=== PATIENT | female | born 1970 | race Caucasian/White ===

== ENCOUNTER 2023-10-04 19:04 | Emergency (ER) | payer OTHER, SELFPAY ==
--- NOTE | ~2023-10-04 | CT_ITS ---
EXAMINATION: CT abdomen pelvis w con DATE: 10/04/2023 20:47 INDICATION: Generalized abdominal pain. TECHNIQUE: Computed tomography (CT) of the abdomen and pelvis was performed with 100 mL Omnipaque 350 intravenous contrast. Automated exposure control and iterative reconstruction technique were employe d. The dose-length product was 714.03 mGy-cm. COMPARISON: None. FINDINGS: The visualized portions of the lung bases are clear without pneumonia or pleural effusion. The heart size is normal. No pericardial effusion. The liver and spleen are normal. There are surgica l changes of gastric sleeve procedure. The spleen, pancreas, adrenal glands, and kidneys are normal. There is an intrauterine device in expected position. There is a 17.5 x 9.3 x 18.9 cm cystic mass wit h peripheral solid component anterior to the uterus. There are no pathologically enlarged lymph nodes . There is no free intraperitoneal fluid. There are chronic bilateral L5 pars defects. There is sever e lower lumbar spondylosis. There is 6 mm anterolisthesis of L5 on S1. IMPRESSION: 1. 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 Surgical evaluation is recommended. Reviewed, dictated and finalized at location E. IMPRESSION: 1. 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 S urgical evaluation is recommended.
--- NOTE | ~2023-10-04 | US_ITS ---
EXAMINATION: US pelvic complete DATE: 10/04/2023 21:39 INDICATION: Abdominal pain. TECHNIQUE: Multiple transabdominal sonographic images of the pelvis were obtained. COMPARISON: CT abdomen and pelvis 10/04/2023 FINDINGS: The uterus measures 9.1 x 4.0 x 5.2 cm. There is no free fluid in the pelvis. The endometrial complex measures 5 mm in thickness. There is an 18.6 x 11.8 x 16.7 cm cystic mass with thick septations with internal vascular flow at the midline. Normal ovaries are not identified. IMPRESSION: 1. 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 Surgical evaluation is recommended. Reviewed, dictated and finalized at location E. IMPRESSION: 1. 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 S urgical evaluation is recommended.
--- NOTE | ~2023-10-04 | XR_ITS ---
EXAMINATION: XR chest 1V portable DATE: 10/04/2023 19:23 INDICATION: Abdominal pain. TECHNIQUE: A single frontal view of the chest was obtained. COMPARISON: None. FINDINGS: There is no pneumonia, pleural effusion, or pneumothorax. The heart size is normal. IMPRESSION: 1. No acute cardiopulmonary disease. Reviewed, dictated and finalized at location E.
--- NOTE | 2023-10-04 19:08 | ED.ABDPAIN ---
HPI - Abdominal Pain General Chief Complaint: Abdominal Pain Stated Complaint: abdominal pain Time Seen by Provider: 10/04/23 19:08 Source: patient and family Mode of arrival: ambulatory Limitations: no limitations History of Present Illness HPI narrative: 53 YEARS OLD WHITE FEMALE DROVE HERSELF TO THE EMERGENCY ROOM COMPLAINING OF MID ABDOMINAL SHARP STABBING PAIN OFTEN ON FOR A WHILE, GOT WORSE LAST NIGHT. SHE DENIES ANY FEVER, CHILLS, NAUSEA, VOMITING, DIARRHEA, CONSTIPATION, URINARY SYMPTOMS, VAGINAL BLEEDING OR DISCHARGE. PATIENT IS HEALTHY OTHERWISE, DOES NOT TAKE MEDICINE AT HOME, DOES NOT SMOKE OR DRINK OR USE DRUGS. Related Data Allergies Allergy/AdvReac Type Severity Reaction Status Date / Time Penicillins Allergy Rash Verified 10/04/23 19:16 Review of Systems Review of Systems: All systems reviewed & are unremarkable except as noted in HPI and below Exam Narrative: GENERAL APPEARANCE: WELL-DEVELOPED, WELL-NOURISHED SKIN: NORMAL COLOR HEAD: NORMOCEPHALIC, NONTRAUMATIC EYES: CLEAR CONJUNCTIVA ENT: OROPHARYNX NORMAL, EARS NORMAL, NOSE NORMAL NECK: SUPPLE, NONTENDER CHEST AND RESPIRATORY: AIRWAY PATENT, NO RESPIRATORY DISTRESS, NO ACCESSORY MUSCLE USE HEART: REGULAR RATE/RHYTHM ABDOMEN: SOFT, A MASSLIKE FEELING MID ABDOMEN, SLIGHTLY TENDER, NO ORGANOMEGALY, QUIET BOWEL SOUNDS VASCULAR: NORMAL PERIPHERAL PULSES, NORMAL CAPILLARY REFILL. 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 TESTED, NO GROSS MOTOR DEFICIT Course Consultations Consultation #1: dr karl GORDON at [facility], Outpatient follow-up Date: 10/04/23 Time: 22:15 Vital Signs Vital signs: Vital Signs Temperature 36.7 C 10/04/23 19:12 Pulse Rate 69 10/04/23 19:12 Respiratory Rate 16 10/04/23 19:12 Blood Pressure 137/86 10/04/23 19:12 Pulse Oximetry 99 10/04/23 19:12 Oxygen Delivery Room Air 10/04/23 19:12 Temperature 36.7 C 10/04/23 19:12 Pulse Rate 57 L 10/04/23 20:09 Respiratory Rate 18 10/04/23 20:09 Blood Pressure 121/81 10/04/23 20:09 Pulse Oximetry 99 10/04/23 20:09 Oxygen Delivery Room Air 10/04/23 19:12 MDM - Abdominal Pain MDM Narrative Medical decision making narrative: DIFFERENTIAL DIAGNOSIS INCLUDE ABDOMINAL WALL HEMATOMA, OVARIAN CYST, INTRA-ABDOMINAL TUMOR. BLOOD WORKUP TODAY SHOWED NO ACUTE ABNORMALITIES CT ABDOMEN AND PELVIS WITH IV CONTRAST SHOWED LARGE CYSTIC OVARIAN MASS LIKELY NUPLAZID, PELVIC ULTRASOUND SHOWED THE SAME. PATIENT WAS SEEN BY HER OBGYN 2 DAYS AGO AND SCHEDULED TO SEE HIM IN 3 DAYS. TUMOR MARKERS ORDERED. Differential Diagnosis Differential diagnosis: Likely other ( ABOVE) Lab Data Attestation: I reviewed the patient's lab results. 10/04/23 19:45 10/04/23 19:45 Labs: Lab Results 10/04/23 10/04/23 10/04/23 Range/Units 19:45 19:49 19:58 WBC 7.6 (4.5-10.0) K/mm3 RBC 4.08 L (4.2-5.4) M/mm3 Hgb 12.0 (12.0-15.0) g/dL Hct 35.3 L (37.0-47.0) % MCV 86.5 (80-100) fl MCH 29.4 (26-34) pg MCHC 34.0 (32-36) g/dl RDW 11.7 (11.5-14.5) % Plt Count 241 (150-375) k/mm3 MPV 11.0 H (7.4-10.4) fl Immature Gran % (Auto) 0.1 (0-0.5) % Neut % (Auto) 46.3 (45.5-73.1) % Lymph % (Auto) 41.2 (18.3-44.2) % Storey % (Auto) 9.1 H (2.6-8.5) % Eos % (Auto) 2.6 (0-4.4) % Baso % (Auto) 0.7 (0.2-1.2) % Lymph # (Auto) 3.13 (0.9-3.2) K/mm3 Storey # (Auto) 0.7 H (0.1-0.6) K/mm3 Eos # (Auto) 0.2 (0-0.3) K/mm3 Baso # (Auto) 0.1 (0.0-0.1) K/mm3 Abs Immat Gran (auto) 0.01 (0.00-0.031) K/mm3 Absol
[2023-10-04 19:12] VITALS: BP 137/86; PULSE 69; RESP 16; TEMP 36.7; O2SAT 99
[2023-10-04] MEDS: SODIUM CHLORIDE 0.9% IV 1,000 ML 999 ML IV CONT (19:55)
[2023-10-04 20:04] LABS: Basophils Absolute Auto 0.1 K/mm3 (0.0-0.1); Basophils Percent Auto 0.7 % (0.2-1.2); Eosinophils Absolute Auto 0.2 K/mm3 (0-0.3); Eosinophils Percent Auto 2.6 % (0-4.4); Hematocrit 35.3 % (37.0-47.0); Immature Granulocyte Absolute 0.01 K/mm3 (0.00-0.031); Immature Granulocyte Percent A 0.1 % (0-0.5); Lymphocytes Absolute Auto 3.13 K/mm3 (0.9-3.2); Lymphocytes Percent Auto 41.2 % (18.3-44.2); Mean Corpuscular Hemoglobin 29.4 pg (26-34); Mean Corpuscular Volume 86.5 fl (80-100); Monocytes Absolute Auto 0.7 K/mm3 (0.1-0.6); Monocytes Percent Auto 9.1 % (2.6-8.5); Neutrophils Absolute Auto 3.5 K/mm3 (1.3-6.7); Neutrophils Percent Auto 46.3 % (45.5-73.1); Platelet Count Result 241 k/mm3 (150-375); Red Blood Count 4.08 M/mm3 (4.2-5.4); Red Cell Distribution Width 11.7 % (11.5-14.5); White Blood Count 7.6 K/mm3 (4.5-10.0)
[2023-10-04 20:09] VITALS: BP 121/81; PULSE 57; RESP 18; O2SAT 99
[2023-10-04 20:14] LABS: Alanine Aminotransferase 25 U/L (6-35); Albumin Level 4.3 g/dL (3.5-5.1); Alkaline Phosphatase 81 U/L (38-126); Anion Gap 7 mmol/L (4-12); Aspartate Amino Transferase 35 U/L (14-36); Bilirubin,Total 0.9 mg/dL (0.2-1.3); Blood Urea Nitrogen 15 mg/dL (7-17); Carbon Dioxide 25 mmol/L (22-30); Chloride 104 mmol/L (98-107); Estimated CRCL calculation 65 ml/min; Estimated Glomerular Filt Rate > 60; Glucose 83 mg/dL (65-110); Lipase 160 U/L (23-300); Partial Thromboplastin Time 26.6 Seconds (22.3-36.8); Potassium 3.8 mmol/L (3.4-5.0); Prothrombin Time 13.7 Seconds (11.1-14.7); Sodium 136 mmol/L (137-145)
[2023-10-04 20:34] LABS: Lactic Acid Reflex 0.8 mmol/L (0.7-2.0)
[2023-10-04 21:08] LABS: Appearance Urine Clear (Clear); Bilirubin Urine Negative (Negative); Blood Urine Negative (Negative); Color Urine Yellow (Yellow); Glucose Urine UA Negative (Negative); Ketones Urine Negative (Negative); Leukocyte Esterase Ur Negative LEU/UL (Negative); Nitrate Urine Negative (Negative); Protein Urine Negative (Negative); Specific Grav Ur 1.007 (1.001-1.035); Urobilinogen Urine 0.2 mg/dL (<2.0)
[2023-10-04 21:09] LABS: Add Urine Microscopic? NO
[2023-10-05 05:38] LABS: HCG Tumor Marker <5 mIU/mL
[2023-10-06 08:09] LABS: CA 19-9 12 U/mL (<34); CA-125 17 U/mL (<35)
== END 2023-10-04 22:15 | disposition home or self-care (01) ==
PROVIDERS: Emergency Provider Emergency Medicine
DX: N83.209 Unspecified ovarian cyst, unspecified side (principal)
CPT/HCPCS: 36415; 71045; 74177; 76856; 80053; 81003; 82378; 83605; 83690; 84702; 85025; 85610; 85730; 86301; 86304; 96360; 99284; J7030; Q9967